=== PATIENT | male | born 1980 | race Hispanic/Latino ===

== ENCOUNTER 2020-03-27 09:47 | Emergency (ER) | payer SELFPAY ==
[2020-03-27] MEDS ORDERED: KETOROLAC 60 MG/2 ML INJ IM ONE (10:51)
--- NOTE | 2020-03-27 10:55 | Emergency Department Report ---
ED General Adult HPI - General Chief complaint: Extremity Problem,Nontraumatic Stated complaint: INFECTION Time Seen by Provider: 03/27/20 10:50 Source: patient Mode of arrival: Ambulatory Limitations: No Limitations - History of Present Illness Initial comments: Patient is 40 years old male with history of bipolar disorder and gout. Patient presented to the ER with 2 complaints. Patient stated that he is having pain in both big toes. Patient describes his pain is similar to his gout flareup. Patient also stating that he is having hallucination seeing snakes in his backyard. Patient stated that he is not sure if this is a true snake or not. Patient denied any auditory hallucination. No homicidal or suicidal ideation. Patient requested a mental health evaluation. - Related Data Allergies Allergy/AdvReac Type Severity Reaction Status Date / Time No Known Allergies Allergy Unverified 03/27/20 10:07 ED Review of Systems ROS: Stated complaint: INFECTION Other details as noted in HPI Comment: All other systems reviewed and negative Constitutional: denies: chills, fever Respiratory: denies: cough, shortness of breath Cardiovascular: denies: chest pain, palpitations Gastrointestinal: denies: abdominal pain, nausea, vomiting, diarrhea, constipation, hematemesis, melena, hematochezia Musculoskeletal: denies: back pain Neurological: denies: headache, weakness, numbness, paresthesias, confusion, abnormal gait ED Past Medical Hx - Past Medical History Previous Medical History?: Yes Hx Hypertension: Yes Additional medical history: Gout - Social History Smoking Status: Current Every Day Smoker Substance Use Type: Marijuana ED Physical Exam - General Limitations: No Limitations General appearance: alert, in no apparent distress, anxious - Head Head exam: Present: atraumatic, normocephalic, normal inspection - Eye Eye exam: Present: normal appearance - ENT ENT exam: Present: normal exam, normal orophraynx, mucous membranes moist - Neck Neck exam: Present: normal inspection, full ROM. Absent: tenderness, meningismus, lymphadenopathy, thyromegaly - Respiratory Respiratory exam: Present: normal lung sounds bilaterally - Cardiovascular Cardiovascular Exam: Present: regular rate, normal rhythm, normal heart sounds - GI/Abdominal GI/Abdominal exam: Present: soft. Absent: distended, tenderness, guarding, rebound, rigid, hyperactive bowel sounds, hypoactive bowel sounds, organomegaly, mass - Extremities Exam Extremities exam: Present: normal inspection, full ROM, normal capillary refill. Absent: pedal edema, calf tenderness - Back Exam Back exam: Present: normal inspection, full ROM. Absent: CVA tenderness (R), CVA tenderness (L) - Neurological Exam Neurological exam: Present: alert, oriented X3, CN II-XII intact, normal gait, reflexes normal - Psychiatric Psychiatric exam: Present: anxious - Skin Skin exam: Present: warm, intact, normal color ED Course Vital Signs 03/27/20 10:31 Temperature 98.3 F Pulse Rate 104 H Respiratory 16 Rate Blood Pressure 135/102 O2 Sat by Pulse 99 Oximetry ED Medical Decision Making - Lab Data Result diagrams: 03/27/20 11:02 03/27/20 11:02 - Medical Decision Making Patient is 40 years old male with history of bipolar disorder and gout. Patient presented to the ER with 2 complaints. Patient stated that he is having pain in both big toes. Patient describes his pain is similar to his gout flareup. Patient also stating that he is having hallucination seeing snakes in his backyard. Patient stated that he is not sure if this is a true snake or not. Patient denied any auditory hallucination. No homicidal or suicidal ideation. Patient requested a mental health evaluation. Patient received Toradol 60 mg IM. Patient stated that it helped a lot with his pain. Labs reviewed and is unremarkable. Patient initially requested a mental health eval however patient declined and stated that he wanted to leave. Patient advised to follow-up with his primary care physician in the next 2 to 3 days and to return to the ER if he develop any new symptoms. Critical care attestation.: If time is entered above; I have spent that time in minutes in the direct care of this critically ill patient, excluding procedure time. ED Disposition Clinical Impression: Acute gouty arthritis, Depression Disposition: DC-01 TO HOME OR SELFCARE Is pt being admited?: No Condition: Stable Instructions: Acute Gouty Arthritis (ED), Depression (ED) Referrals: PRIMARY CARE, [Primary Care Provider] - 3-5 Days
[2020-03-27 11:28] LABS: Basophils # (Auto) 0.1 K/mm3 (0.0-0.1); Basophils % (Auto) 0.5 % (0.0-1.8); Eosinophils % (Auto) 0.2 % (0.0-4.3); Hematocrit 38.2 % (35.5-45.6); Hemoglobin 13.5 gm/dl (11.8-15.2); Lymphocytes # (Auto) 2.1 K/mm3 (1.2-5.4); Lymphocytes % (Auto) 17.5 % (13.4-35.0); Mean Corpuscular HGB Conc 35 % (32-34); Mean Corpuscular Volume 94 fl (84-94); Monocytes # (Auto) 0.8 K/mm3 (0.0-0.8); Monocytes % (Auto) 6.5 % (0.0-7.3); Platelet Count 285 K/mm3 (140-440); Red Blood Count 4.08 M/mm3 (3.65-5.03); Red Cell Distribution Width 13.2 % (13.2-15.2)
[2020-03-27 11:43] LABS: BUN/Creatinine Ratio 24; Blood Urea Nitrogen 22 mg/dL (9-20); Calcium 9.9 mg/dL (8.4-10.2); Hemolysis Index 5
[2020-03-27] MEDS ORDERED: KETOROLAC 60 MG/2 ML INJ ONE (13:06)
[2020-03-27 13:07] LABS: Bilirubin,Urine NEG (Negative); Blood,Urine NEG (Negative); Color,Urine Yellow (Yellow); Mucus,Urine 1+ /HPF; Protein,Urine <15 mg/dL mg/dL (Negative); Urobilinogen,Urine < 2.0 mg/dL (<2.0)
[2020-03-27 13:28] LABS: Benzodiazepines Screen,Urine Negative; Cocaine Screen,Urine Negative; Methadone Screen,Urine Negative; Opiate Screen,Urine Negative
[2020-03-27 13:42] LABS: Amphetamine Screen,Urine Positive; Cannabinoid Screen,Urine Positive
[2020-03-27 19:24] VITALS: BP 142/88
== END 2020-03-27 14:30 | disposition home or self-care (01) ==
LOC: ED 09:47
DX: M10.9 Gout, unspecified (principal); F17.200 Nicotine dependence, unspecified, uncomplicated; F12.10 Cannabis abuse, uncomplicated; I10 Essential (primary) hypertension; F31.9 Bipolar disorder, unspecified; Z79.899 Other long term (current) drug therapy
CPT/HCPCS: 36415; 80048; 80307; 81001; 85025; 99283; J1885; 80320; G0480

== ENCOUNTER 2021-02-26 12:09 | Emergency (ER) | payer OTHER, SELFPAY ==
[2021-02-26] MEDS ORDERED: IBUPROFEN 800 MG TAB PO ONE (17:36)
[2021-02-26] MEDS ORDERED: PENICILLIN G BENZATHINE 1.2 MILLION UNIT/2 ML INJ IM ONE (17:36)
[2021-02-26] MEDS ORDERED: HYDROcodone/ACETAMINOPHEN 5-325 MG TAB PO ONE (17:36)
[2021-02-26] MEDS ORDERED: HYDROcodone/ACETAMINOPHEN 5-325 MG TAB PO PRN (17:38)
[2021-02-26] MEDS ORDERED: IBUPROFEN 800 MG TAB PO PRN (17:38)
[2021-02-26] MEDS ORDERED: COLCHICINE 0.6 MG TAB PO ONE ×2 (17:38→18:00)
--- NOTE | 2021-02-26 17:44 | Emergency Department Report ---
HPI - General Chief Complaint: Pain General Time Seen by Provider: 02/26/21 17:09 - HPI HPI: Room 4 The patient is a 41-year-old male present with a chief complaint gout pain, dental pain and suicidal ideation. The patient states his right great toe has been bothering him for the past 2 days consistent with his gout. Patient denies any recent trauma. Patient also complains of dental pain from multiple broken teeth with caries which has bothered him for years. The patient states for the past "few days" he has had hallucinations seen [facility]. Patient also admits to suicidal ideation for 1 week with a plan to jump off of a train station. P atient denies any active attempts at harming himself. Patient admits to methamphetamine abuse ED Past Medical Hx - Past Medical History Previous Medical History?: Yes Hx Hypertension: Yes Additional medical history: Gout, Hep B - Surgical History Additional Surgical History: Right upper extremity infection debridement - Family History Family history: no significant - Social History Smoking Status: Current Every Day Smoker (1 pack/day) Substance Use Type: Alcohol (Rarely), Methamphetamines - Medications Home Medications: Home Medications Medication Instructions Recorded Confirmed Last Taken Type Colchicine 0.6 mg PO Q6HR PRN #20 capsule 03/27/20 Unknown Rx ED Review of Systems ROS: Stated complaint: LEFT LEG AND FOOT PAIN Other details as noted in HPI Constitutional: no symptoms reported Eyes: denies: eye pain ENT: dental pain Respiratory: denies: cough Cardiovascular: denies: chest pain Endocrine: no symptoms reported Gastrointestinal: denies: abdominal pain Genitourinary: denies: dysuria Musculoskeletal: arthralgia (Gout right great toe) Neurological: denies: headache Psychiatric: visual hallucinations, suicidal thoughts Physical Exam - Physical Exam Vital Signs: Vital Signs 02/26/21 12:22 Temperature 98.1 F Pulse Rate 90 Respiratory 18 Rate Blood Pressure 128/99 [Right] O2 Sat by Pulse 99 Oximetry Vital Signs 02/26/21 02/26/21 12:22 20:02 Temperature 98.1 F 97.8 F Pulse Rate 90 71 Respiratory 18 18 Rate Blood Pressure 128/99 106/70 [Right] O2 Sat by Pulse 99 99 Oximetry Physical Exam: GENERAL: The patient is well-developed well-nourished male lying on stretcher not appearing to be in acute distress. [] HEENT: Normocephalic. Atraumatic. Extremely poor dentition. Multiple broken teeth. Multiple caries. No evidence of abscess visualized NECK: Supple. Trachea midline CHEST/LUNGS: Clear to auscultation. There is no respiratory distress noted. HEART/CARDIOVASCULAR: Regular. There is no tachycardia. There is no gallop rub or murmur. ABDOMEN: Abdomen is soft, nontender. Patient has normal bowel sounds. There is no abdominal distention. SKIN: There is no rash. There is no edema. There is no diaphoresis. NEURO: The patient is awake, alert, and oriented. The patient is cooperative. The patient has no focal neurologic deficits. The patient has normal speech. GCS 15 MUSCULOSKELETAL: There is no evidence of acute injury. ED Course Vital Signs 02/26/21 12:22 Temperature 98.1 F Pulse Rate 90 Respiratory 18 Rate Blood Pressure 128/99 [Right] O2 Sat by Pulse 99 Oximetry ED Medical Decision Making - Lab Data Result diagrams: 02/26/21 17:51 02/26/21 17:51 Laboratory Tests 02/26/21 02/26/21 02/26/21 17:51 17:51 17:51 WBC 10.0 RBC 4.35 Hgb 14.3 Hct 41.7 MCV 96 H MCH 33 H MCHC 34 RDW 13.6 Plt Count 305 Lymph % (Auto) 30.9 [place] % (Auto) 8.8 H Eos % (Auto) 2.2 Baso % (Auto) 0.5 Lymph # (Auto) 3.1 [place] # (Auto) 0.9 H Eos # (Auto) 0.2 Baso # (Auto) 0.1 Seg Neutrophils % 57.6 Seg Neutrophils # 5.8 Sodium 138 Potassium 3.8 Chloride 99.8 Carbon Dioxide 29 Anion Gap 13 BUN 18 Creatinine 0.8 Estimated GFR > 60 BUN/Creatinine Ratio 23 Glucose 69 L Calcium 9.2 Urine Color Urine Turbidity Urine pH Ur Specific [place] Urine Protein Urine Glucose (UA) Urine Ketones Urine Blood Urine Nitrite Urine Bilirubin Urine Urobilinogen Ur Leukocyte Esterase Urine WBC (Auto) Urine RBC (Auto) U Epithel Cells (Auto) Urine Mucus Salicylates < 0.3 L Urine Opiates Screen Urine Methadone Screen Acetaminophen Ur Barbiturates Screen Ur Phencyclidine Scrn Ur Amphetamines Screen U Benzodiazepines Scrn Urine Cocaine Screen U Marijuana (THC) Screen Drugs of Abuse Note Plasma/Serum Alcohol 02/26/21 02/26/21 02/26/21 17:51 17:51 Unknown WBC RBC Hgb Hct MCV MCH MCHC RDW Plt Count Lymph % (Auto) [place] % (Auto) Eos % (Auto) Baso % (Auto) Lymph # (Auto) [place] # (Auto) Eos # (Auto) Baso # (Auto) Seg Neutrophils % Seg Neutrophils # Sodium Potassium Chloride Carbon Dioxide Anion Gap BUN Creatinine Estimated GFR BUN/Creatinine Ratio Glucose Calcium Urine Color Yellow Urine Turbidity Clear Urine pH 5.0 Ur Specific [place] 1.026 Urine Protein <15 mg/dl Urine Glucose (UA) Neg Urine Ketones Neg Urine Blood Neg Urine Nitrite Neg Urine Bilirubin Neg Urine Urobilinogen 2.0 Ur Leukocyte Esterase Neg Urine WBC (Auto) 6.0 Urine RBC (Auto) 5.0 U Epithel Cells (Auto) < 1.0 Urine Mucus Few Salicylates Urine Opiates Screen Urine Methadone Screen Acetaminophen 5.0 L Ur Barbiturates Screen Ur Phencyclidine Scrn Ur Amphetamines Screen U Benzodiazepines Scrn Urine Cocaine Screen U Marijuana (THC) Screen Drugs of Abuse Note Plasma/Serum Alcohol < 0.01 02/26/21 Unknown WBC RBC Hgb Hct MCV MCH MCHC RDW Plt Count Lymph % (Auto) [place] % (Auto) Eos % (Auto) Baso % (Auto) Lymph # (Auto) [place] # (Auto) Eos # (Auto) Baso # (Auto) Seg Neutrophils % Seg Neutrophils # Sodium Potassium Chloride Carbon Dioxide Anion Gap BUN Creatinine Estimated GFR BUN/Creatinine Ratio Glucose Calcium Urine Color Urine Turbidity Urine pH Ur Specific [place] Urine Protein Urine Glucose (UA) Urine Ketones Urine Blood Urine Nitrite Urine Bilirubin Urine Urobilinogen Ur Leukocyte Esterase Urine WBC (Auto) Urine RBC (Auto) U Epithel Cells (Auto) Urine Mucus Salicylates Urine Opiates Screen Negative Urine Methadone Screen Negative Acetaminophen Ur Barbiturates Screen Negative Ur Phencyclidine Scrn Negative Ur Amphetamines Screen Positive U Benzodiazepines Scrn Negative Urine Cocaine Screen Negative U Marijuana (THC) Screen Positive Drugs of Abuse Note Disclamer Plasma/Serum Alcohol - Differential Diagnosis Gout, dental caries, schizophrenia, suicidal ideation Critical care attestation.: If time is entered above; I have spent that time in minutes in the direct care of this critically ill patient, excluding procedure time. ED Disposition Clinical Impression: Suicidal ideation, Podagra, Dental caries, Visual hallucinations, Schizophrenia Disposition: DC/TX-65 PSY HOSP/PSY UNIT Is pt being admited?: No Does the pt Need Aspirin: No Condition: Stable Referrals: PRIMARY CARE, [Primary Care Provider] - 3-5 Days Time of Disposition: 22:14 (Awaiting acceptance)
[2021-02-26 18:07] LABS: Basophils # (Auto) 0.1 K/mm3 (0.0-0.1); Basophils % (Auto) 0.5 % (0.0-1.8); Eosinophils # (Auto) 0.2 K/mm3 (0.0-0.4); Eosinophils % (Auto) 2.2 % (0.0-4.3); Hematocrit 41.7 % (35.5-45.6); Hemoglobin 14.3 gm/dl (11.8-15.2); Lymphocytes # (Auto) 3.1 K/mm3 (1.2-5.4); Lymphocytes % (Auto) 30.9 % (13.4-35.0); Mean Corpuscular HGB Conc 34 % (32-34); Mean Corpuscular Volume 96 fl (84-94); Monocytes # (Auto) 0.9 K/mm3 (0.0-0.8); Monocytes % (Auto) 8.8 % (0.0-7.3); Platelet Count 305 K/mm3 (140-440); Red Blood Count 4.35 M/mm3 (3.65-5.03); Red Cell Distribution Width 13.6 % (13.2-15.2)
[2021-02-26 18:19] LABS: BUN/Creatinine Ratio 23; Blood Urea Nitrogen 18 mg/dL (9-20); Calcium 9.2 mg/dL (8.4-10.2); Hemolysis Index 8
[2021-02-26 18:25] LABS: Bilirubin,Urine NEG (Negative); Blood,Urine NEG (Negative); Color,Urine Yellow (Yellow); Mucus,Urine FEW /HPF; Protein,Urine <15 mg/dL mg/dL (Negative)
[2021-02-26 18:30] LABS: Benzodiazepines Screen,Urine Negative; Cocaine Screen,Urine Negative; Methadone Screen,Urine Negative; Opiate Screen,Urine Negative
[2021-02-26 18:42] LABS: Amphetamine Screen,Urine Positive; Cannabinoid Screen,Urine Positive
[2021-02-27 10:06] VITALS: BP 100/66
--- NOTE | 2021-02-27 10:55 | Consultation ---
History of Present Illness - Reason for Consult Consult date: 02/27/21 Reason for consult: suicidal ideation - History of Present Psychiatric Illness ED Note: The patient is a 41-year-old male present with a chief complaint gout pain, dental pain and suicidal ideation. The patient states his right great toe has been bothering him for the past 2 days consistent with his gout. Patient denies any recent trauma. Patient also complains of dental pain from multiple broken teeth with caries which has bothered him for years. The patient states for the past "few days" he has had hallucinations seen [facility]. Patient also admits to suicidal ideation for 1 week with a plan to jump off of a train station. Patient denies any active attempts at harming himself. Patient admits to methamphetamine abuse. Sanjiv Dominguez is a 41 year old male who presents to the Ed with suicidal ideation. In my interview with the patient, he reports that he is not doing well stating " I want to , I want to jump off the [employer] train, I am tired of living, there is nothing here for me, I don't have anything." The patient repor ts being homeless and does not have any family support. He endorses command auditory and visual hallucinations stating the voices are telling him to kill himself and that he sees snakes. Diagnoses: Schizophrenia, Polysubstance abuse Suicide attempts or Self-harm behavior: Yes Prior psychiatric hospitalizations: Yes Substance Abuse history: polysubstance, meth Previous psychiatric medications tried: Seroquel Outpatient treatment: Yes PAST MEDICAL HISTORY: unknown Family Psychiatric History: None reported or documented SOCIAL HISTORY Marital Status: Single Living Arrangements: Homeless Employment Status: unemployed Access to guns/weapons: Denies Education: 6th grade History of Abuse: none reported Legal History: none reported REVIEW OF SYSTEMS Constitutional: Negative for weight loss ENT: Negative for stridor Respiratory: Negative for cough or hemoptysis All other systems reviewed and are negative MENTAL STATUS EXAMINATION General Appearance and Behavior: Age appropriate, good hygiene, wearing appropriate clothes, sleeping, cooperative Cooperation: Participating/engaged Psychomotor Behavior: unremarkable and within normal limits Mood: Depressed Affect and affective range: congruent with mood Thought Process: goal directed Thought Content: SI Speech: Normal volume, Regular rate and rhythm, Suicidal Ideation: Yes Homicidal Ideation: Denies Hallucinations: Auditory/ Visual Delusions: None elicited Impulse Control: Unimpaired Insight and Judgment: Limited insight and judgment, Memory: Normal, Attention: Normal Orientation: Alert, oriented Assessment and Plan (1)Major depressive disorder, recurrent, severe- F33.2 Current Visit: Yes Status: Acute Treatment Plan Start Sertraline 25mg po daily Start Risperdone 1mg po QHS The patient to comply with previously prescribed medications Risks, benefits and alternatives of medications discussed with the patient, questions answered and consent obtained from patient. PSYCHOTHERAPY: Supportive psychotherapy provided MEDICAL: Per primary team DELIRIUM PRECAUTIONS: Please re-orient patient frequently, keep lights on during the day, and minimize benzodiazepines and opiates as these medications could worsen patient's confusion. POOL NURSE: Defer to primary DISPOSITION: Recommend acute inpatient psychiatric hospitalization at this time. FOLLOW-UP: Will follow Thank you for the consult. Please contact with any questions and/or concerns. Medications and Allergies Medications and Allergies Allergies Allergy/AdvReac Type Severity Reaction Status Date / Time haloperidol [From Haldol] Allergy Unknown Verified 02/26/21 12:23 iodine Allergy Unknown Verified 02/26/21 12:23 Home Medications Medication Instructions Recorded Confirmed Last Taken Type Colchicine 0.6 mg PO Q6HR PRN #20 capsule 03/27/20 Unknown Rx Active Meds: Active Medications Hydrocodone Bitart/Acetaminophen (Hydrocodone/Acetaminophen 5-325 Mg Tab) 2 each PO Q6H PRN PRN Reason: Pain, Moderate (4-6) Ibuprofen (Ibuprofen 800 Mg Tab) 800 mg PO Q8H PRN PRN Reason: Pain, Moderate (4-6) Mental Status Exam - Vital signs Last Vital Signs Temp 98.1 F 02/27/21 08:00 Pulse 89 02/27/21 08:00 Resp 18 02/27/21 08:00 BP 100/66 02/27/21 08:00 Pulse Ox 98 02/27/21 08:00 Results Result Diagrams: 02/26/21 17:51 02/26/21 17:51 Abnormal lab results 02/26/21 02/26/21 02/26/21 Range/Units 17:51 17:51 17:51 MCV 96 H (84-94) fl MCH 33 H (28-32) pg [place] % (Auto) 8.8 H (0.0-7.3) % [place] # (Auto) 0.9 H (0.0-0.8) K/mm3 Glucose 69 L (75-100) mg/dL Salicylates < 0.3 L (2.8-20.0) mg/dL Acetaminophen (10.0-30.0) ug/mL 02/26/21 Range/Units 17:51 MCV (84-94) fl MCH (28-32) pg [place] % (Auto) (0.0-7.3) % [place] # (Auto) (0.0-0.8) K/mm3 Glucose (75-100) mg/dL Salicylates (2.8-20.0) mg/dL Acetaminophen 5.0 L (10.0-30.0) ug/mL All other labs normal.
--- NOTE | 2021-02-27 15:48 | Event Note ---
Date: 02/27/21 Patient calm and cooperative. No additional needs at this time. Is recommended that the patient still be here for on a 1013. Patient still having suicidal ideations. Awaiting placement.
[2021-02-27] MEDS ORDERED: risperiDONE 1 MG TAB PO SCH (22:00)
[2021-02-28] MEDS ORDERED: SERTRALINE 25 MG TAB PO SCH (10:00)
== END 2021-02-27 19:31 ==
LOC: ED 12:09
DX: F20.9 Schizophrenia, unspecified (principal); R48.1 Agnosia; R45.851 Suicidal ideations; M10.9 Gout, unspecified; K08.89 Other specified disorders of teeth and supporting structures; I10 Essential (primary) hypertension; F17.200 Nicotine dependence, unspecified, uncomplicated; Z86.19 Personal history of other infectious and parasitic diseases; Z20.822 Contact with and (suspected) exposure to COVID-19
CPT/HCPCS: 36415; 80048; 80307; 81001; 85025; 96372; 99285; J0561; U0003; 80320; G0480